=== PATIENT | male | born 1990 | race Caucasian/White ===

== ENCOUNTER 2018-06-18 08:00 | Outpatient (CLI) | payer BC, MEDICAID ==
[2018-06-18 12:49] LABS: BASOPHILS % (AUTO) 0.6 %; EOSINOPHILS # (AUTO) 0.1 10^3/uL (0.0-0.7); HGB - HEMOGLOBIN 15.9 g/dL (14.0-18.0); LYMPHOCYTES # (AUTO) 1.8 10^3/uL (1.5-3.5); LYMPHOCYTES % (AUTO) 24.6 %; MEAN CORPUSCULAR HEMOGLOBIN 30.4 pg (27.0-31.0); MEAN CORPUSCULAR HGB CONC 34.6 g/dL (32.0-36.0); MEAN CORPUSCULAR VOLUME 88.1 fL (80.0-94.0); MEAN PLATELET VOLUME 8.9 fL (7.4-11.4); MONOCYTES # (AUTO) 0.6 10^3/uL (0.0-1.0); MONOCYTES % (AUTO) 7.8 %; NEUTROPHILS # (AUTO) 4.7 10^3/uL (1.5-6.6); PLT - PLATELET COUNT 239 10^3/uL (130-450); RED BLOOD COUNT 5.23 10^6/uL (4.70-6.10); RED CELL DISTRIBUTION WIDTH 13.2 % (12.0-15.0); WHITE BLOOD COUNT 7.3 x10^3/uL (4.8-10.8)
[2018-06-18 12:59] LABS: ALBUMIN 4.3 g/dL (3.2-5.5); ALBUMIN/GLOBULIN RATIO 1.3 (1.0-2.2); ALKALINE PHOSPHATASE 77 IU/L (42-121); ALT ALANINE AMINOTRANSFERASE 196 IU/L (10-60); AST ASPARTATE AMINOTRANSFERASE 106 IU/L (10-42); BILIRUBIN,TOTAL 1.2 mg/dL (0.2-1.0); BUN - BLOOD UREA NITROGEN 15 mg/dL (6-20); CALCIUM 9.5 mg/dL (8.5-10.3); CARBON DIOXIDE - CO2 26 mmol/L (21-32); CHLORIDE 102 mmol/L (101-111); CHOL/HDL RATIO 5.2 (<5.0); CHOLESTEROL 155 mg/dL; CREATININE 0.9 mg/dL (0.6-1.2); GFR - MDRD 100 (>89); GLUCOSE 95 mg/dL (70-100); HDL CHOLESTEROL 30 mg/dL; LDL CHOLESTEROL,CALCULATED 75 mg/dL; LDL/HDL RATIO 2.5 (<3.6); SODIUM 138 mmol/L (135-145); TOTAL PROTEIN 7.6 g/dL (6.7-8.2); VLDL CHOLESTEROL 50 mg/dL
[2018-06-19 14:33] LABS: HIV AG/AB 4TH GEN NON-REACTIVE (NON-REACTIVE)
== END 2018-06-18 23:59 | disposition home or self-care (01) ==
LOC: LAB.N 08:00
PROVIDERS: ATTEND Nurse Practitioner Gerontology
DX: R03.0 Elevated blood-pressure reading, without diagnosis of hypertension (principal); Z13.9 Encounter for screening, unspecified; Z11.3 Encounter for screening for infections with a predominantly sexual mode of transmission
CPT/HCPCS: 36415; 80053; 80061; 81599; 83721; 85025; 86592; 87389; 87491; 87591

== ENCOUNTER 2018-11-22 08:13 | Outpatient (CLI) | payer BC ==
[2018-11-22 19:04] LABS: ALBUMIN 4.6 g/dL (3.2-5.5); ALBUMIN/GLOBULIN RATIO 1.6 (1.0-2.2); ALKALINE PHOSPHATASE 110 IU/L (42-121); ALT ALANINE AMINOTRANSFERASE 31 IU/L (10-60); AST ASPARTATE AMINOTRANSFERASE 19 IU/L (10-42); BILIRUBIN,TOTAL 0.9 mg/dL (0.2-1.0); BUN - BLOOD UREA NITROGEN 14 mg/dL (6-20); CALCIUM 9.4 mg/dL (8.5-10.3); CARBON DIOXIDE - CO2 26 mmol/L (21-32); CHLORIDE 106 mmol/L (101-111); CHOL/HDL RATIO 4.5 (<5.0); CHOLESTEROL 136 mg/dL; GFR - MDRD 89 (>89); GLUCOSE 83 mg/dL (70-100); HDL CHOLESTEROL 30 mg/dL; LDL CHOLESTEROL,CALCULATED 63 mg/dL; LDL/HDL RATIO 2.1 (<3.6); SODIUM 141 mmol/L (135-145); TOTAL PROTEIN 7.5 g/dL (6.7-8.2); VLDL CHOLESTEROL 43 mg/dL
== END 2018-11-22 08:30 | disposition home or self-care (01) ==
LOC: LAB.N 08:13
PROVIDERS: ATTEND Nurse Practitioner Gerontology
DX: E78.1 Pure hyperglyceridemia (principal); R74.8 Abnormal levels of other serum enzymes; E66.9 Obesity, unspecified
CPT/HCPCS: 36415; 80053; 80061; 83721

== ENCOUNTER 2019-06-26 17:55 | Outpatient (CLI) | payer OTHER | END 2019-06-26 17:56 | disposition home or self-care (01) | LOC: COV 17:55 | PROVIDERS: ATTEND Family Medicine | DX: R50.9 Fever, unspecified (principal); M79.10 Myalgia, unspecified site; R53.83 Other fatigue; J02.9 Acute pharyngitis, unspecified | CPT/HCPCS: 81599 ==

== ENCOUNTER 2019-10-06 08:00 | Outpatient (CLI) | payer OTHER ==
[2019-10-06 21:33] LABS: TRICHOMONAS VAGINALIS DNA NEGATIVE (NEGATIVE)
[2019-10-13 14:34] LABS: HEPATITIS C ANTIBODY Non-reactive
[2019-10-13 14:37] LABS: HSV 1 IGG TYPE SPECIFIC AB 0.96 (H)
[2019-10-13 14:38] LABS: HSV 2 IGG TYPE SPECIFIC AB <0.90
[2019-10-13 14:40] LABS: HIV AG/AB 4TH GEN Non-reactive
== END 2019-10-06 23:59 | disposition home or self-care (01) ==
LOC: LAB.WCP 08:00
PROVIDERS: ATTEND Physician Assistant
DX: Z11.3 Encounter for screening for infections with a predominantly sexual mode of transmission (principal)
CPT/HCPCS: 36415; 81599; 86695; 86696; 86803; 87389; 87491; 87591; 87661

== ENCOUNTER 2019-11-18 16:12 | Outpatient (CLI) | payer OTHER ==
[2019-11-18 16:57] VITALS: BP 124/80
--- NOTE | 2019-11-18 16:57 | SLEEP CARE CONSULTATION ---
Information from patient questionnaire entered by Romy Agarwal. I have reviewed and concur with the information entered by Romy Agarwal. This document represents the service I personally performed and the decisions made by me, Lorraine Gonsalez ARNP. History of Present Illness Service Date and Time: 11/18/2019 1612 Reason for Visit: New patient Chief Complaint: reports: Unrefreshed sleep, Snoring, Excessive daytime sleepiness, Fatigue. denies: Insomnia, Observed pauses in breathing, Frequent awakenings at night Date of Onset: Years Usual bedtime: 12 am; sleep at 1-2 am Time it takes to fall asleep: 30 mins Snores at night: Yes Observed to quit breathing while asleep: No Sleeps alone due to snoring: No Number of times waking at night: 0 Reasons for waking at night: denies: Choking, Snoring, Gasping for air, Bathroom Toss, Turn, or Twitch while sleeping: Yes Recalls having dreams: Yes Usually gets out of bed at: 7 am - 8 am; weekends 10 am Feels refreshed in the morning: No Morning headache: No Sleepy or fatigued during the day: Yes Ever fallen asleep while driving: No (has had drowsy driving) Takes day naps: Yes (don't intend to nap; will doze off in early evening) Dreams during day naps: No Prior sleep studies: No Additional HPI information: I had the pleasure of seeing LINH QUAN today regarding the possibility of him having a sleep disorder. His current complaints are unrefreshed sleep, snoring, excessive daytime sleepiness and fatigue. He was talking to PCP about his depression, exhausted, always tired, and he is sleeping up to 12 hours sometimes. He has some heartburn occasionally. He also had some issue with anxiety and depression for which he does not take medications. He has a strong family of sleep apnea. - Parasomnia Symptoms Ever been unable to move upon waking from sleep: No Walks in sleep: Yes (only as a child) Talks in sleep: Yes (only as a child) Ever acted out dreams in sleep: No Ever felt weak in the knees when startled or emotional: No Bothered by creepy, crawly, restless sensations in legs: No Problems with memory or concentration: Yes (some short-term memory and some long-term as well) Subjective Initial [place] Sleepiness Scale score: 14 (in 2020) Past Medical History Past Medical History: reports: GERD (acid reflux, takes antacids when really bad). 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 Patient is Single and lives in [place]. Have you smoked in the past 12 months: No Alcohol use: No Caffeine use: Yes Caffeine amount and frequency: about 20 oz Family History Family history of sleep disordered breathing: Yes (mother, uncle, grandfathers) Family Hx Sleep Apnea: Mother: Snoring, Sleep apnea - Treated, Grandparent: Snoring, Sleep apnea - Treated Allergies and Home Medications Drug allergies reviewed: Yes (NKDA) Home medication list reviewed: Yes (no medications) Review of Systems Cardiovascular: denies: high blood pressure, palpitations, chest pain, irregular heart rate or pulse, leg or foot swelling Respiratory: denies: shortness of breath Gastrointestinal: reports: heartburn. denies: difficulty swallowing Urinary: denies: impotence Neurological: reports: fainting or unconsciousness (once in elementary school). denies: headaches, seizure, head trauma, speech dysfunction, gait or balance problems Psychiatric: reports: anxiety, depression (thinks might be related to fatigue and memory loss), claustrophobia. denies: Attention Deficit Hyperactivity Ear/Nose/Throat: reports: tonsillectomy, wisdom teeth removed. denies: nasal congestion, sinus problems, nose bleeds, dry mouth/throat, injury to nose Endocrine: denies: thyroid disease Musculoskeletal: denies: muscle pain or cramping, mobility problems Immunologic: reports: allergies to food or environment (seasonal (pollen)) Physical Exam Blood Pressure: 124/80 Cuff size: long Heart Rate: 87 O2 Saturation: 100 Height: 6 ft 2 in Weight: 298 lb Body Mass Index: 38.2 BMI Classification: Obese Neck circumference: 18 (inches) HEENT: No craniofacial malformation Nostrils: patent to airflow Turbinates: swollen Septum: midline Mouth and throat: narrow oropharynx Soft palate: normal Hard palate: arched Uvula: normal Uvula visualization: 50% Mallampati Class II Tongue: enlarged in size with teeth black on lateral edges Tonsils: absent bilaterally Chin and jaw: normal size and position Neck: normal w/o lymphadenopathy or thyromegaly Heart: regular rate and rhythm Lungs: clear bilaterally Impression and Plan 1. Suspected Obstructive Sleep Apnea-Hypopnea Syndrome, as suggested by a history of loud and irregular snoring, unrefreshed sleep, cognitive impairment, and excessive daytime sleepiness. I reviewed with patient that a narrow oropharynx and obesity are common predisposing factors for obstructive sleep ap lara-hypopnea syndrome. I recommend proceeding to polysomnography to confirm the diagnosis and to assess severity. If the patient has significant sleep disordered breathing, a manual CPAP titration study will also be performed to find the optimal treatment pressure. I informed the patient of what the sleep studies involve and after some discussion, obtained agreement to proceed. The pathophysiology of obstructive sleep apnea-hypopnea syndrome was discussed with the patient and health risks of cardiovascular and cerebrovascular disease if not treated. [facility] brochure for obstructive sleep apnea-hypopnea syndrome given and reviewed. 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 Patient agreed to plan. [facility] drowsy driving brochure given. * Schedule polysomnography +- manual CPAP titration study. * Avoid long distance driving or driving when feeling sleepy. * Avoid sedative and muscle relaxant around bedtime. * Attempt to lose weight. * Review instructions provided by trained office staff on how to prepare for the sleep study. * Return for follow-up after sleep study completed. Location of Provider: Office Time Spent with Patient (minutes): 31
== END 2019-11-18 16:13 | disposition home or self-care (01) ==
LOC: SC 16:12
PROVIDERS: ATTEND Nurse Practitioner Family
DX: G47.8 Other sleep disorders (principal); R06.83 Snoring; G47.10 Hypersomnia, unspecified; R53.83 Other fatigue; E66.9 Obesity, unspecified; Z68.38 Body mass index [BMI] 38.0-38.9, adult
CPT/HCPCS: 99203; 99212

== ENCOUNTER 2020-01-01 07:50 | Outpatient (CLI) | payer OTHER | END 2020-01-01 07:51 | disposition home or self-care (01) | LOC: SC 07:50 | PROVIDERS: ATTEND Nurse Practitioner Family | DX: G47.33 Obstructive sleep apnea (adult) (pediatric) (principal); R09.02 Hypoxemia; E66.9 Obesity, unspecified; Z68.38 Body mass index [BMI] 38.0-38.9, adult; R00.0 Tachycardia, unspecified | CPT/HCPCS: 95806 ==

== ENCOUNTER 2020-02-04 10:10 | Outpatient (CLI) | payer OTHER ==
--- NOTE | 2020-02-04 10:39 | SLEEP CARE CONSULTATION ---
Information from patient questionnaire entered by Romy Agarwal. I have reviewed and concur with the information entered by Romy Agarwal. This document represents the service I personally performed and the decisions made by , Lorraine Gonsalez ARNP. History of Present Illness Service Date and Time: 02/04/2020 1010 Initial [place] Sleepiness Scale score: 14 (in 2020) Current [place] Sleepiness Scale score: 13 Additional HPI information: LINH QUAN returns for follow up and results of the recently performed home sleep study. I explained the pathophysiology behind obstructive sleep apnea. We then spent quite a bit of time discussing different treatment options. For mild obstructive sleep apnea, surgery and oral appliance are alternatives to nasal CPAP therapy but in moderate or severe cases, nasal CPAP is the most effective and reliable treatment. After some discussion, the patient opted to go with the nasal CPAP therapy. Nasal autoCPAP set at 4-15 cmH20 will be ordered with rationale explained. A manual titration study will be ordered if unable to find optimal pressure with office adjustments. I explained how CPAP machine works with sample devices [employer] and [employer] [id number] and what to expect when using the machine. Using CPAP every night in order to get used to it was emphasized. Patient advised to put CPAP mask on before getting into bed so as not to fall asleep without CPAP. To assist acclimation to CPAP use, it could also be used for a short time during day while reading or watching TV. The patient was instructed to call the CPAP supplier to discuss any mechanical problem that may occur. If the mask given is uncomfortable or is difficult to keep on through the night even with adjustment, contact the CPAP supplier as many will replace with another mask style if n otified before 30 days. If snoring or perceives is not getting enough air or too much air from the machine, notify this office. [facility] patient education PAP tips reviewed and given to patient. Patient does not drink alcohol. Patient was cautioned about risks of drowsy driving until sleepiness symptoms resolve. Sleep Study - Results Type of Sleep Study: Home sleep study Prior sleep studies: No Polysomnography/Home Sleep Study results: Physician Impression: The quality of the study is good. The length of the study is adequate (> 240 minutes). Please also see the tabulated and graphic data. 1. Obstructive Sleep Apnea-Hypopnea (ICD-10 G47.33), severe, with an AHI of 34.6 /hr and chely SaO2 of 80%. During the study, the patient had 122 apneas (121 obstructive, 0 central, 1 mixed) and 148 hypopneas. The longest episode lasted 115.5 seconds. The respiratory events occurred independently of sleep stage and body position (supine AHI was 27.7 and non-supine, 41.02). 2. Hypoxemia (ICD-10 R09.02), mild, with the lowest oxygen saturation of 80 % and 30.5 minutes with SaO2 under 90%. Baseline oxygen saturation was normal (Average oxygen saturation was 93%). 3. Tachycardia, with maximum recoded heart rate of 255 beats per minute but cannot be confirmed.. Allergies and Home Medications Drug allergies reviewed: Yes (NKDA) Home medication list reviewed: Yes (no changes) Review of Systems Review of systems same as previous: Yes (no changes) Physical Exam Heart Rate: 75 O2 Saturation: 97 Height: 6 ft 2 in Weight: 289 lb Body Mass Index: 37.0 BMI Classification: Obese Impression and Plan 1. Obstructive Sleep Apnea-Hypopnea Syndrome, severe, with lowest oxygen saturation of 80%. Obviously this is the cause of the patients symptoms of unrefreshed sleep, and excessive daytime sleepiness. Positive pressure therapy could benefit acid reflux/GERD. As mentioned above, the patient will be started on nasal autoCPAP therapy with pressure set at 4-15 cmH2O. A manual titration study will be completed if unable to find optimal treatment pressure with office adjustments. Compliance guidelines also reviewed. A copy of compliance guidelines will be given for reference at check out. * Nasal auto CPAP therapy, pressure at 4-15 cm H2O. * Attempt to lose weight. * Avoid non-supine sleep until using CPAP. * The patient is again cautioned about driving until sleepiness completely resolves. * Return one month after CPAP obtained. I will assess response to therapy and compliance at that time. Counseling Topics: Weight loss health impact Visit Type: In Office Time Spent with Patient (minutes): 20 Provider Statement: I spent 100% of the Face to Face Visit with the patient with greater than 50% spent counseling the patient and coordination of care.
== END 2020-02-04 10:11 | disposition home or self-care (01) ==
LOC: SC 10:10
PROVIDERS: ATTEND Nurse Practitioner Family
DX: G47.33 Obstructive sleep apnea (adult) (pediatric) (principal); R09.02 Hypoxemia; E66.9 Obesity, unspecified; Z68.37 Body mass index [BMI] 37.0-37.9, adult
CPT/HCPCS: 99212; 99213

== ENCOUNTER 2020-04-21 08:47 | Outpatient (CLI) | payer OTHER ==
--- NOTE | 2020-04-21 09:22 | SLEEP CARE CONSULTATION ---
Information from patient questionnaire entered by Romy Agarwal. I have reviewed and concur with the information entered by Romy Agarwal. This document represents the service I personally performed and the decisions made by , Lorraine Gonsalez ARNP. History of Present Illness Service Date and Time: 04/21/2020 0847 Previous diagnosis: Severe, Obstructive Sleep Apnea-Hypopnea Syndrome AHI: 34.6 (in 2019) Reason for follow up: first compliance Equipment type: CPAP Equipment obtained from: [employer] Mask style: Full face Backup mask available: No Last cushion change: over 2 months Prior sleep studies: Yes Year and Where: 2019 - [facility] Type of Sleep Study: Home sleep study HPI additional information: LINH QUAN was diagnosed to have severe, AHI 34.6, obstructive sleep apnea-hypopnea syndrome and returned today for CPAP therapy first compliance follow-up. CPAP Compliance Data - Data Reviewed with Patient Average duration of nightly device use: 4 hours 13 minutes Compliance rate %: 23.3 Current pressure setting (cmH2O): 4-15 (5.4 mean, 6.9 peak, 7.1 average) Humidity settin Heated hose settin Average residual AHI: 3.6 Average large leak: 13 minutes Subjective Missed days of use due to: reports: mask issues Patient concerns: reports: mask discomfort, air blowing in eyes, dry mouth, nose , throat (slight a couple of times). denies: aerophagia, mask leak noise, condensation in mask/hose, nasal congestion, epistaxis, other Observed to snore while using device: No Current pressure setting perceived as: comfortable On therapy, patient: reports: sleeping better, awakening more refreshed, being more awake and alert during the day, more rested overall. denies: drowsiness while driving Initial [place] Sleepiness Scale score: 14 (in 2020) Current [place] Sleepiness Scale score: 15 Allergies and Home Medications Home medication list reviewed: Yes (no changes) Review of Systems Review of systems same as previous: Yes (no changes) Physical Exam Heart Rate: 79 O2 Saturation: 98 Height: 6 ft 2 in Weight: 303 lb Body Mass Index: 38.9 BMI Classification: Obese Impression and Plan 1. Obstructive Sleep Apnea-Hypopnea Syndrome, severe, with poor treatment compliance and good apnea control. On CPAP therapy, the patient has better sleep quality and is more rested overall. He has not been using his machine due to mask fit issues. He has been using a large full face mask suggested due to his full face euceda but he gets some leaking into his eyes. He would like to try a different mask. We discussed that a nasal pillows mask may be a good fit for him and I will have him try one. He needs to meed to compliance by end of the month and he was advised to try to use the full face mask with a sleeping mask covering his eyes to reduce air in his eyes. Then when he gets the nasal pillows mask he can try this one. He is to follow up in about 3 weeks to recheck compliance. I will adjust pressure to reflect his pressure needs to 6-8 cmH2O. He is to let me know if the pressure is uncomfortable. He voiced understanding and agreement with plan. Patient's apnea severity and rationale for treatment to reduce apnea, improve sleep quality and reduce cardiovascular and cerebrovascular events was reviewed. I also reviewed the benefit of consistent device use of CPAP for gastric reflux. * Change auto CPAP pressure to 6-8 cmH2O * Try nasal pillows mask * Notify me if snoring with mask or feeling that the pressure is too much or too little * Attempt to lose weight * Call this office if any problems using CPAP * Return for follow up in 3 weeks to check compliance, or sooner if concerns arise Counseling Topics: Spare mask, Weight loss health impact Visit Type: In Office Time Spent with Patient (minutes): 23 Provider Statement: I spent 100% of the Face to Face Visit with the patient with greater than 50% spent counseling the patient and coordination of care.
== END 2020-04-21 08:48 | disposition home or self-care (01) ==
LOC: SC 08:47
PROVIDERS: ATTEND Nurse Practitioner Family
DX: G47.33 Obstructive sleep apnea (adult) (pediatric) (principal); E66.9 Obesity, unspecified; Z68.38 Body mass index [BMI] 38.0-38.9, adult
CPT/HCPCS: 99212; 99213

== ENCOUNTER 2020-05-11 16:14 | Outpatient (CLI) | payer OTHER ==
--- NOTE | 2020-05-11 16:31 | SLEEP CARE CONSULTATION ---
Information from patient questionnaire entered by Rose Marie Aguayo. I have reviewed and concur with the information entered by Rose Marie Aguayo. This document represents the service I personally performed and the decisions made by me, Lorraine Gonsalez ARNP. History of Present Illness Service Date and Time: 05/11/2020 1614 Previous diagnosis: Severe, Obstructive Sleep Apnea-Hypopnea Syndrome AHI: 34.6 (in 2019) Reason for follow up: other (3-week followup - compliance check) Equipment type: CPAP Equipment obtained from: [employer] (getting supplies as needed) Mask style: Full face Backup mask available: Yes (other mask) Prior sleep studies: Yes Year and Where: 2019 - [facility] Type of Sleep Study: Home sleep study HPI additional information: LINH QUAN was diagnosed to have severe, AHI 34.6, obstructive sleep apnea-hypopnea syndrome and returned today for CPAP therapy 3 week compliance follow-up. CPAP Compliance Data - Data Reviewed with Patient Average duration of nightly device use: 5 h 45 min Compliance rate %: 89.5 Current pressure setting (cmH2O): 6-8 Humidity settin Heated hose settin Average residual AHI: 3.5 Average large leak: 0 sec Subjective Patient concerns: reports: mask discomfort (thinks the mask may be a little small, squishes up the bottom lip). denies: aerophagia, air blowing in eyes, mask leak noise, condensation in mask/hose, nasal congestion, dry mouth, nose, throat, epistaxis, other Observed to snore while using device: No Current pressure setting perceived as: comfortable On therapy, patient: reports: sleeping better, awakening more refreshed, being more awake and alert during the day, more rested overall. denies: drowsiness while driving Initial [place] Sleepiness Scale score: 14 (in 2020) Current [place] Sleepiness Scale score: 11 Allergies and Home Medications Home medication list reviewed: Yes (no changes) Review of Systems Review of systems same as previous: Yes (no changes) Physical Exam Heart Rate: 88 O2 Saturation: 99 Height: 6 ft 2 in Weight: 303 lb Body Mass Index: 38.9 BMI Classification: Obese Impression and Plan 1. Obstructive Sleep Apnea-Hypopnea Syndrome, severe, with good treatment compliance and good apnea control. On CPAP therapy, the patient has better sleep quality and is more rested overall. He has reached his compliance. He tried the nasal pillows mask but was not happy with the fit. He has gone back to the full face mask but feels it could be a little longer as is seems to push up on his bottom lip. I advised him to ask [employer] to send him a larger size mask to see if the fit is better. He voiced understanding. He has no other issues or concerns with CPAP or mask use. Patient's apnea severity and rationale for treatment to reduce apnea, improve sleep quality and reduce cardiovascular and cerebrovascular events was reviewed. I also reviewed the benefit of consistent device use of CPAP for gastric reflux. * Continue auto CPAP pressure at 6-8 cmH2O * Notify me if snoring with mask or feeling that the pressure is too much or too little * Attempt to lose weight * Call this office if any problems using CPAP * Return for follow up in 3 months, or sooner if concerns arise Counseling Topics: Spare mask, Weight loss health impact Visit Type: In Office Time Spent with Patient (minutes): 13 Provider Statement: I spent 100% of the Face to Face Visit with the patient with greater than 50% spent counseling the patient and coordination of care.
== END 2020-05-11 16:15 | disposition home or self-care (01) ==
LOC: SC 16:14
PROVIDERS: ATTEND Nurse Practitioner Family
DX: G47.33 Obstructive sleep apnea (adult) (pediatric) (principal); E66.9 Obesity, unspecified; Z68.38 Body mass index [BMI] 38.0-38.9, adult
CPT/HCPCS: 99212

== ENCOUNTER 2020-05-27 09:00 | Outpatient (CLI) | payer OTHER ==
[2020-05-27 11:54] LABS: BASOPHILS % (AUTO) 0.4 %; EOSINOPHILS # (AUTO) 0.2 10^3/uL (0.0-0.7); EOSINOPHILS % (AUTO) 2.5 %; HCT - HEMATOCRIT 46.9 % (42.0-52.0); LYMPHOCYTES # (AUTO) 1.9 10^3/uL (1.5-3.5); MEAN CORPUSCULAR HEMOGLOBIN 30.5 pg (27.0-31.0); MEAN CORPUSCULAR HGB CONC 34.1 g/dL (32.0-36.0); MEAN CORPUSCULAR VOLUME 89.5 fL (80.0-94.0); MEAN PLATELET VOLUME 10.3 fL (7.4-11.4); MONOCYTES # (AUTO) 0.6 10^3/uL (0.0-1.0); MONOCYTES % (AUTO) 8.1 %; NEUTROPHILS # (AUTO) 4.1 10^3/uL (1.5-6.6); NEUTROPHILS % (AUTO) 60.6 %; PLT - PLATELET COUNT 244 10^3/uL (130-450); RED BLOOD COUNT 5.24 10^6/uL (4.70-6.10); RED CELL DISTRIBUTION WIDTH 12.5 % (12.0-15.0); WHITE BLOOD COUNT 6.8 x10^3/uL (4.8-10.8)
[2020-05-27 12:51] LABS: ESTIMATED AVERAGE GLUCOSE 82 mg/dL (70-100); HEMOGLOBIN A1c% 4.5 % (4.27-6.07)
[2020-05-27 13:01] LABS: ALBUMIN 4.8 g/dL (3.2-5.5); ALBUMIN/GLOBULIN RATIO 1.8 (1.0-2.2); ALKALINE PHOSPHATASE 74 IU/L (42-121); ALT ALANINE AMINOTRANSFERASE 67 IU/L (10-60); AST ASPARTATE AMINOTRANSFERASE 27 IU/L (10-42); BILIRUBIN,TOTAL 0.7 mg/dL (0.2-1.0); BUN - BLOOD UREA NITROGEN 19 mg/dL (6-20); CALCIUM 9.8 mg/dL (8.5-10.3); CARBON DIOXIDE - CO2 25 mmol/L (21-32); CHLORIDE 104 mmol/L (101-111); CHOL/HDL RATIO 4.3 (<5.0); CHOLESTEROL 147 mg/dL; CREATININE 1.1 mg/dL (0.6-1.2); GFR - MDRD 79 (>89); GLUCOSE 93 mg/dL (70-100); HDL CHOLESTEROL 34 mg/dL; LDL CHOLESTEROL,CALCULATED 79 mg/dL; LDL/HDL RATIO 2.3 (<3.6); POTASSIUM 4.4 mmol/L (3.5-5.0); SODIUM 140 mmol/L (135-145); TOTAL PROTEIN 7.5 g/dL (6.7-8.2); TRIGLYCERIDES 171 mg/dL; VLDL CHOLESTEROL 34 mg/dL
[2020-05-27 22:25] LABS: CHLAMYDIA TRACHOMATIS DNA NEGATIVE (NEGATIVE); NEISSERIA GONORRHOEAE DNA NEGATIVE (NEGATIVE)
[2020-05-28 08:12] LABS: HIV AG/AB 4TH GEN NON-REACTIVE (NON-REACTIVE)
[2020-05-28 11:31] LABS: HEPATITIS C ANTIBODY NON-REACTIVE (NON-REACTIVE)
== END 2020-05-27 23:59 | disposition home or self-care (01) ==
LOC: LAB.WCP 09:00
PROVIDERS: ATTEND Family Medicine
DX: Z00.00 Encounter for general adult medical examination without abnormal findings (principal); K76.0 Fatty (change of) liver, not elsewhere classified; E66.9 Obesity, unspecified; Z11.3 Encounter for screening for infections with a predominantly sexual mode of transmission
CPT/HCPCS: 36415; 80053; 80061; 83036; 83721; 85025; 86592; 86803; 87389; 87491; 87591; 87661

== ENCOUNTER 2020-08-18 13:57 | Outpatient (CLI) | payer OTHER ==
--- NOTE | 2020-08-18 14:34 | SLEEP CARE CONSULTATION ---
Information from patient questionnaire entered by Romy Agarwal. I have reviewed and concur with the information entered by Romy Agarwal. This document represents the service I personally performed and the decisions made by , Lorraine Gonsalez ARNP. History of Present Illness Service Date and Time: 08/18/2020 1357 Previous diagnosis: Severe, Obstructive Sleep Apnea-Hypopnea Syndrome AHI: 34.6 (in 2019) Reason for follow up: three month Equipment type: CPAP Equipment obtained from: [employer] (getting supplies as needed) Mask style: Full face Backup mask available: No (will keep old mask when replaced) Last cushion change: 3 months Prior sleep studies: Yes Year and Where: 2019 - [facility] Type of Sleep Study: Home sleep study HPI additional information: LINH QUAN was diagnosed to have severe, AHI 34.6, obstructive sleep apnea-hypopnea syndrome and returned today for CPAP therapy three month follow- up. CPAP Compliance Data - Data Reviewed with Patient Average duration of nightly device use: 5 hr 15 min Compliance rate %: 45.6 (90 days) Current pressure setting (cmH2O): 6-8 Humidity settin Heated hose settin Average residual AHI: 3.1 Average large leak: 20 min 4 sec Subjective Missed days of use due to: reports: other Patient concerns: denies: aerophagia, mask discomfort, air blowing in eyes, mask leak noise, condensation in mask/hose, nasal congestion, dry mouth, nose, throat, epistaxis, other Observed to snore while using device: No Current pressure setting perceived as: comfortable On therapy, patient: reports: sleeping better, awakening more refreshed, being more awake and alert during the day, more rested overall. denies: drowsiness while driving Initial [place] Sleepiness Scale score: 14 (in 2019) Current [place] Sleepiness Scale score: 6 Allergies and Home Medications Home medication list reviewed: Yes (no new meds) Review of Systems Review of systems same as previous: Yes (no changes) Physical Exam Heart Rate: 101 O2 Saturation: 98 Height: 6 ft 2 in Weight: 302 lb Weight change since last visit: 1 lb loss Body Mass Index: 38.7 BMI Classification: Obese Impression and Plan 1. Obstructive Sleep Apnea-Hypopnea Syndrome, severe, with poor treatment compliance and good apnea control. On CPAP therapy, the patient has better sleep quality and is more rested overall. His compliance did come down because he stopped using his CPAP after receiving a notice for the [facility] [employer] recall. I reviewed with him how to find the website to register his machine on [employer]. He has been having some good results with the CPAP but he states he increased his exercise since stopping using the machine a few weeks ago and is feeling he is getting good results. He plans on not using his CPAP but will use positional therapy with exercise to try and reduce daytime sleepiness and fatigue until they work out what to do with these recalled CPAP machines. I encouraged him to sleep with his head elevated to help reduce apneas since his recorded apneas on his last sleep study were elevated in the supine and non- supine positions in the moderate to severe range. He voiced understanding and agreement with this plan of care.Patient's apnea severity and rationale for treatment to reduce apnea, improve sleep quality and reduce cardiovascular and cerebrovascular events was reviewed. I also reviewed the benefit of consistent device use of CPAP for gastric reflux. * Continue auto CPAP pressure at 6-8 cmH2O * Use positional therapy with head elevated to reduce apneas and increased exercise to reduce weight * Try to lose weight * Call this office if any problems * Return for follow up in 3 months, or sooner if concerns arise Counseling Topics: Spare mask, Weight loss health impact Visit Type: In Office Time Spent with Patient (minutes): 16 Provider Statement: I spent 100% of the Face to Face Visit with the patient with greater than 50% spent counseling the patient and coordination of care.
== END 2020-08-18 13:58 | disposition home or self-care (01) ==
LOC: SC 13:57
PROVIDERS: ATTEND Nurse Practitioner Family
DX: G47.33 Obstructive sleep apnea (adult) (pediatric) (principal); E66.9 Obesity, unspecified; Z68.38 Body mass index [BMI] 38.0-38.9, adult
CPT/HCPCS: 99212

== ENCOUNTER 2020-11-18 16:24 | Outpatient (CLI) | payer OTHER ==
--- NOTE | 2020-11-18 17:01 | SLEEP CARE CONSULTATION ---
Information from patient questionnaire entered by Rose Marie Aguayo. I have reviewed and concur with the information entered by Rose Marie Aguayo. This document represents the service I personally performed and the decisions made by , Lorraine Gonsalez ARNP. History of Present Illness Service Date and Time: 11/18/2020 1624 Previous diagnosis: Severe, Obstructive Sleep Apnea-Hypopnea Syndrome AHI: 34.6 (in 2019) Reason for follow up: three month (followup) Equipment type: CPAP Equipment obtained from: [employer] (needs supplies, has not received any since 6 months) Mask style: Full face Backup mask available: No (will keep old mask when replaced) Last cushion change: 8+ months Prior sleep studies: Yes Year and Where: 2019 - [facility] Type of Sleep Study: Home sleep study HPI additional information: LINH QUAN was diagnosed to have severe, AHI 34.6, obstructive sleep apnea-hypopnea syndrome and returned today for CPAP therapy three month follow- up. CPAP Compliance Data Compliance data discussion: He is able to use his device every night for about 6 hours. He did not bring in his compliance chip and we cannot download his compliance report. Subjective Missed days of use due to: reports: travel, other (Recall) Patient concerns: denies: aerophagia, mask discomfort, air blowing in eyes, mask leak noise, condensation in mask/hose, nasal congestion, dry mouth, nose, throat, epistaxis, other Observed to snore while using device: No Current pressure setting perceived as: comfortable On therapy, patient: reports: sleeping better, awakening more refreshed, being more awake and alert during the day, more rested overall. denies: drowsiness while driving Initial [place] Sleepiness Scale score: 14 (in 2019) Current [place] Sleepiness Scale score: 8 Allergies and Home Medications Home medication list reviewed: Yes (no changes) Review of Systems Review of systems same as previous: Yes (no changes) Physical Exam Heart Rate: 88 O2 Saturation: 96 Height: 6 ft 2 in Weight: 297 lb Body Mass Index: 38.1 BMI Classification: Obese Impression and Plan 1. Obstructive Sleep Apnea-Hypopnea Syndrome, severe, with unknown treatment compliance and unknown apnea control. On CPAP therapy, the patient has better sleep quality and is more rested overall. Patient missed some time on his device due to travel and due to the recall. He forgot to bring in his memory card and we are unable to get up to date information on the website. Patient states that he can bring in the card tomorrow morning so we can have this information. I will also have him follow up in 1-2 months to recheck his compliance. Patient's apnea severity and rationale for treatment to reduce apnea, improve sleep quality and reduce cardiovascular and cerebrovascular events was reviewed. I also reviewed the benefit of consistent device use of CPAP for gastric reflux. * Continue auto CPAP pressure at 6-8 cmH2O * Patient to bring in memory card for us to obtain compliance report * Notify me if snoring with mask or feeling that the pressure is too much or too little * Attempt to lose weight * Call this office if any problems using CPAP * Return for follow up in 1-2 months, or sooner if concerns arise Counseling Topics: Spare mask, Weight loss health impact Visit Type: In Office Time Spent with Patient (minutes): 16 Provider Statement: I spent 100% of the Face to Face Visit with the patient with greater than 50% spent counseling the patient and coordination of care.
== END 2020-11-18 16:25 | disposition home or self-care (01) ==
LOC: SC 16:24
PROVIDERS: ATTEND Nurse Practitioner Family
DX: G47.33 Obstructive sleep apnea (adult) (pediatric) (principal); E66.9 Obesity, unspecified; Z68.38 Body mass index [BMI] 38.0-38.9, adult
CPT/HCPCS: 99212

== ENCOUNTER 2020-12-30 16:17 | Outpatient (CLI) | payer OTHER ==
[2020-12-30 16:42] VITALS: BP 129/87
--- NOTE | 2020-12-30 16:42 | SLEEP CARE CONSULTATION ---
Information from patient questionnaire entered by Adryan Aquino MA. I have reviewed and concur with the information entered by Adryan Aquino MA. This document represents the service I personally performed and the decisions made by , Lorraine Gonsalez ARNP. History of Present Illness Service Date and Time: 12/30/2020 1617 Previous diagnosis: Severe, Obstructive Sleep Apnea-Hypopnea Syndrome AHI: 34.6 (in 2019) Reason for follow up: other (6 week follow up ) Equipment type: CPAP Equipment obtained from: [employer] (getting supplies as needed) Mask style: Full face Backup mask available: Yes (old mask) Prior sleep studies: Yes Year and Where: 2019 - [facility] Type of Sleep Study: Home sleep study HPI additional information: LINH QUAN was diagnosed to have severe, AHI 34.6, obstructive sleep apnea-hypopnea syndrome and returned today for CPAP therapy 6 week follow-up. Sleep Study - Results Type of Sleep Study: Home sleep study Prior sleep studies: Yes Year and Where: 2019 - [facility] CPAP Compliance Data - Data Reviewed with Patient Average duration of nightly device use: 4 hours 24 minutes Compliance rate %: 45.2 Current pressure setting (cmH2O): 6-8 Humidity settin Heated hose settin Average residual AHI: 3.3 Average large leak: 1 hour 5 seconds Subjective Missed days of use due to: reports: other (just needs to follow routine on the weekends with wearing the mask) Patient concerns: denies: aerophagia, mask discomfort, air blowing in eyes, mask leak noise, condensation in mask/hose, nasal congestion, dry mouth, nose, throat, epistaxis, other Observed to snore while using device: No Current pressure setting perceived as: comfortable On therapy, patient: reports: sleeping better, awakening more refreshed, being more awake and alert during the day, more rested overall. denies: drowsiness while driving Initial [place] Sleepiness Scale score: 14 (in 2019) Current [place] Sleepiness Scale score: 8 (in 2020) Allergies and Home Medications Known drug allergies: Yes (Penicillin) Home medication list reviewed: Yes (no changes) Review of Systems Review of systems same as previous: Yes (no changes) Physical Exam Vital signs obtained and entered by: L Kenia [employer] CONS[employer] AAMA Blood Pressure: 129/87 (left) Cuff size: wrist Heart Rate: 83 O2 Saturation: 99 (with mask) Height: 6 ft 2 in Weight: 292 lb (with boots) Body Mass Index: 37.5 BMI Classification: Obese Impression and Plan 1. Obstructive Sleep Apnea-Hypopnea Syndrome, severe, with poor treatment compliance and good apnea control. On CPAP therapy, the patient has better sleep quality and is more rested overall. He has increased his compliance from 0.0% to 45.2%. He states he has a routine to put the mask on when going to bed on days he works but he stays up longer on the weekends and will not remember to put the mask on when he goes to bed. To prevent falling asleep without CPAP after staying up later, patient can put the mask on pillow to remind him to put it on when going to bed. Patient is aware of the recall on his Dreamstation CPAP. Patient was encouraged to register their device online with [employer] for the recall to see if their device is affected. If their device is affected they should start a claim. Patient denies any black particles seen in machine or hoses, any unusual odors coming from device. Patient has not experienced any physical symptoms such as upper airway irritation, headache, skin or eye irritation, asthma, nausea/vomiting, difficulty breathing or chest pain. If patient is not able to sleep due to waking up choking, gasping for air or other respiratory distress that they may decide to continue using it until it is either replaced or repaired. Patient was encouraged to lose weight for their overall health and to reduce apneas. Patient voiced understanding and agreement with plan. Patient's apnea severity and rationale for treatment to reduce apnea, improve sleep quality and reduce cardiovascular and cerebrovascular events was reviewed. I also reviewed the benefit of consistent device use of CPAP for gastric reflux. * Continue auto CPAP pressure at 6-8 cmH2O * Notify me if snoring with mask or feeling that the pressure is too much or too little * Attempt to lose weight * Call this office if any problems using CPAP * Return for follow up in 3 month, or sooner if concerns arise Counseling Topics: Weight loss health impact Visit Type: In Office Time Spent with Patient (minutes): 16 Provider Statement: I spent 100% of the Face to Face Visit with the patient with greater than 50% spent counseling the patient and coordination of care.
== END 2020-12-30 16:18 | disposition home or self-care (01) ==
LOC: SC 16:17
PROVIDERS: ATTEND Nurse Practitioner Family
DX: G47.33 Obstructive sleep apnea (adult) (pediatric) (principal); E66.9 Obesity, unspecified; Z68.37 Body mass index [BMI] 37.0-37.9, adult
CPT/HCPCS: 99212

== ENCOUNTER 2021-03-31 16:11 | Outpatient (CLI) | payer OTHER ==
[2021-03-31 16:41] VITALS: BP 151/92
--- NOTE | 2021-03-31 16:41 | SLEEP CARE CONSULTATION ---
Information from patient questionnaire entered by Adryan Aquino MA. I have reviewed and concur with the information entered by Adryan Aquino MA. This document represents the service I personally performed and the decisions made by , Lorraine Gonsalez ARNP. History of Present Illness Service Date and Time: 03/31/2021 1611 Previous diagnosis: Severe, Obstructive Sleep Apnea-Hypopnea Syndrome AHI: 34.6 (in 2019) Reason for follow up: three month Equipment type: CPAP Equipment obtained from: [employer] (needs supplies, has not received any since 6 months) Mask style: Full face Backup mask available: Yes (other mask) Prior sleep studies: Yes Year and Where: 2019 - [facility] Type of Sleep Study: Home sleep study HPI additional information: LINH QUAN was diagnosed to have severe, AHI 34.6, obstructive sleep apnea-hypopnea syndrome and returned today for CPAP therapy three month follow- up. Sleep Study - Results Type of Sleep Study: Home sleep study Prior sleep studies: Yes Year and Where: 2019 - [facility] CPAP Compliance Data - Data Reviewed with Patient Average duration of nightly device use: 4 HOURS 24 MINUTES Compliance rate %: 21.2 Current pressure setting (cmH2O): 6-8 Humidity settin Heated hose settin Average residual AHI: 3.3 Average large leak: 1 HOUR 5 SECONDS Subjective Missed days of use due to: reports: mask issues (he finally got a new mask on a website), other (moved and winter break from school) Patient concerns: reports: dry mouth, nose, throat. denies: aerophagia, mask discomfort, air blowing in eyes, mask leak noise, condensation in mask/hose, nasal congestion, epistaxis, other Observed to snore while using device: No Current pressure setting perceived as: too low On therapy, patient: reports: sleeping better, more rested overall. denies: drowsiness while driving Initial [place] Sleepiness Scale score: 14 (in 2019) Current [place] Sleepiness Scale score: 11 (2021) Allergies and Home Medications Known drug allergies: Yes Drug allergies reviewed: Yes Home medication list reviewed: Yes (no changes) Review of Systems Review of systems same as previous: Yes (no changes) Physical Exam Vital signs obtained and entered by: Nima AQUINO CMA [facility] Blood Pressure: 151/92 (LEFT, X 2, PULSE 72, RESP 16,) Heart Rate: 87 O2 Saturation: 97 (WITH CLOTH MASK) Height: 6 ft 2 in Weight: 306 lb (TRYING TO LOOSE WT) Body Mass Index: 39.2 BMI Classification: Obese Impression and Plan 1. Obstructive Sleep Apnea-Hypopnea Syndrome, severe, with poor treatment compliance and good apnea control. On CPAP therapy, the patient has better sleep quality and is more rested overall. Patient states he moved and then it was winter break from school and he was not very good at putting on his mask. He states he finally bought a new full face mask off line and this is more comfortable allowing him to wear it more consistently since the last week of February. Compliance guidelines reviewed for insurance coverage. Patient was counseled on the difference between meeting compliance and optimal use of CPAP. Optimal use of CPAP is use of CPAP with all sleep to obtain maximum benefit of treatment. Patient is encouraged to use CPAP with all sleep. Patient's apnea severity and rationale for treatment to reduce apnea, improve sleep quality and reduce cardiovascular and cerebrovascular events was reviewed. I also reviewed the benefit of consistent device use of CPAP for gastric reflux. Patient was encouraged to lose weight for their overall health and to reduce apneas. * Change auto CPAP pressure to 6-9 cmH2O * Notify me if snoring with mask or feeling that the pressure is too much or too little * Attempt to lose weight * Call this office if any problems using CPAP * Return for follow up in 1-2 months, or sooner if concerns arise Counseling Topics: Spare mask, Weight loss health impact Visit Type: In Office Time Spent with Patient (minutes): 11 Provider Statement: I spent 100% of the Face to Face Visit with the patient with greater than 50% spent counseling the patient and coordination of care.
== END 2021-03-31 16:12 | disposition home or self-care (01) ==
LOC: SC 16:11
PROVIDERS: ATTEND Nurse Practitioner Family
DX: G47.33 Obstructive sleep apnea (adult) (pediatric) (principal); E66.9 Obesity, unspecified; Z68.39 Body mass index [BMI] 39.0-39.9, adult
CPT/HCPCS: 99212

== ENCOUNTER 2021-06-03 15:55 | Outpatient (CLI) | payer OTHER ==
--- NOTE | 2021-06-03 16:25 | SLEEP CARE CONSULTATION ---
Information from patient questionnaire entered by Adryan Aquino MA. I have reviewed and concur with the information entered by Adryan Aquino MA. This document represents the service I personally performed and the decisions made by , Lorraine Gonsalez ARNP. History of Present Illness Service Date and Time: 06/03/2021 1555 Previous diagnosis: Severe, Obstructive Sleep Apnea-Hypopnea Syndrome AHI: 34.6 (in 2019) Reason for follow up: other (2 MONTH F/U, BRAD, ) Equipment type: CPAP Equipment obtained from: [employer] (getting supplies as needed) Mask style: Full face Backup mask available: No (will keep old mask when replaced) Last cushion change: January Prior sleep studies: Yes Year and Where: 2019 - [facility] Type of Sleep Study: Home sleep study HPI additional information: LINH QUAN was diagnosed to have severe, AHI 34.6, obstructive sleep apnea-hypopnea syndrome and returned today for CPAP therapy 2 month follow-up. Sleep Study - Results Type of Sleep Study: Home sleep study Prior sleep studies: Yes Year and Where: 2019 - [facility] CPAP Compliance Data Compliance data discussion: Patient will bring in memory chip on Sunday. We are unable to get his compliance report past 12/2020. He states he normally wears his mask about 5 days a week. He normally feels he sleeps at least 6 hours. Subjective Patient concerns: denies: aerophagia, mask discomfort, air blowing in eyes, nasal congestion, dry mouth, nose, throat, epistaxis, other Observed to snore while using device: No Current pressure setting perceived as: comfortable On therapy, patient: reports: sleeping better, awakening more refreshed, being more awake and alert during the day, more rested overall. denies: drowsiness while driving Initial [place] Sleepiness Scale score: 14 (in 2019) Current [place] Sleepiness Scale score: 7 (05/2021) Allergies and Home Medications Known drug allergies: No Drug allergies reviewed: Yes Home medication list reviewed: Yes (no changes) Review of Systems Review of systems same as previous: Yes (no changes) Physical Exam Vital signs obtained and entered by: PAUL FOFANA Blood Pressure: 133/79 (LEFT, PULSE 85, RESP 18, ) Cuff size: wrist Heart Rate: 86 O2 Saturation: 97 (N95) Height: 6 ft 2 in Weight: 314 lb Weight change since last visit: 8 lb gain Body Mass Index: 40.3 BMI Classification: Morbidly Obese Impression and Plan 1. Obstructive Sleep Apnea-Hypopnea Syndrome, severe, with unknown treatment compliance and unknown apnea control. On CPAP therapy, the patient has better sleep quality and is more rested overall. Patient states he does use his machine at least 5 days a week for about 6 hours. He did not bring in his memory card but will bring this in on Sunday so I can update his chart. I will have him follow up in 3 months to recheck compliance as it may be just under the 70% required by insurance. He voiced agreement with plan of care. Patient's apnea severity and rationale for treatment to reduce apnea, improve sleep quality and reduce cardiovascular and cerebrovascular events was reviewed. I also reviewed the benefit of consistent device use of CPAP for gastric reflux. 2. Obesity, unspecified. Patient has gained weight. Currently patients BMI is 40.3. Obesity increases the risk of apnea, CPAP pressure requirements and overall health risks especially cardiovascular and diabetes. Thus patient is advised to lose weight. Weight loss can be done with reducing portion size, reducing refined foods and balancing content with vegetables, fruit and whole grain foods. In addition, patient encouraged to get regular exercise. The patient's CPAP pressure range should accommodate some weight loss. Symptoms to report for additional pressure adjustment discussed. * Continue auto CPAP pressure at 6-9 cmH2O * Notify me if snoring with mask or feeling that the pressure is too much or too little * Attempt to lose weight * Call this office if any problems using CPAP * Return for follow up in 3 months, or sooner if concerns arise Counseling Topics: Spare mask, Weight loss health impact Visit Type: In Office Time Spent with Patient (minutes): 20 Provider Statement: I spent 100% of the Face to Face Visit with the patient with greater than 50% spent counseling the patient and coordination of care.
[2021-06-03 16:26] VITALS: BP 133/79
== END 2021-06-03 15:56 | disposition home or self-care (01) ==
LOC: SC 15:55
PROVIDERS: ATTEND Nurse Practitioner Family
DX: G47.33 Obstructive sleep apnea (adult) (pediatric) (principal); E66.01 Morbid (severe) obesity due to excess calories; Z68.41 Body mass index [BMI] 40.0-44.9, adult
CPT/HCPCS: 99212; 99213